=== PATIENT | male | born 2005 | race Caucasian/White ===

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

== ENCOUNTER 2025-08-31 07:44 | Emergency (ER) | payer MEDICAID, SELFPAY ==
--- NOTE | ~2025-08-31 | XR_ITS ---
EXAMINATION: XR CHEST CLINICAL INFORMATION: Cough COMPARISON: May 10, 2023 TECHNIQUE: PA and lateral views FINDINGS: No consolidation, pleural effusion or pneumothorax. No hyperinflation. Cardiomediastinal silhouette size is normal. S-shaped curvature upper thoracic spine. XR/XR chest 2V IMPRESSION: No acute airspace disease. Scoliosis, thoracic spine. Electronically signed by: Oziel Rasmussen MD 08/31/2025 08:09 AM AMANDA
[2025-08-31 07:49] VITALS: BP 132/76; PULSE 90; RESP 18; TEMP 37; O2SAT 97; BMI 33.7
--- NOTE | 2025-08-31 08:11 | ED.URI ---
HPI - URI/Sore Throat General Chief Complaint: Upper Respiratory Symptoms Stated Complaint: Cough Congestion Running Nose Time Seen by Provider: 08/31/25 07:57 Source: patient and old records reviewed Mode of arrival: ambulatory Limitations: no limitations History of Present Illness ED Provider: JEANETH MCLEAN Narrative: 20-year-old male with past medical history of asthma though does not use an inhaler regularly. He notes he has had a cough with white sputum for 3 weeks. His initial illness was runny nose, sore throat, fevers and chills. He states his family was also sick. He denies any recent travel or procedures. States he did try the albuterol inhaler but it did not work. He states he can not remember the last time he had to take prednisone if he has ever had to take prednisone. He does not smoke. He came in as he states the cough just will not get better MD elicited complaint: cough Pertinent past history: asthma Onset (ago): week(s) (Three) Consistency: intermittent Severity: moderate Description of mucous: clear Able to tolerate fluids by mouth: Yes Exacerbating factors: nothing Relieving factors: nothing Context: sick contacts Associated symptoms: other (When he coughs he gets a headache) Treatments prior to arrival: none Related Data Previous Rx's ?Medication ?Instructions ?Recorded albuterol sulfate 90 mcg/actuation 2 inh inhalation Q4-6H PRN 05/10/23 aerosol inhaler shortness of breath or wheezing #8.5 grams benzonatate 200 mg capsule 200 mg PO TID PRN cough #20 caps 05/10/23 azithromycin 250 mg tablet See Rx Instructions PO .COMPLEX #6 08/31/25 tabs fluticasone propionate 50 1 inh inhalation BID #60 ea 08/31/25 mcg/actuation blister powder for inhalation prednisone 20 mg tablet 40 mg (2 x 20 mg) PO DAILY 5 days 08/31/25 #10 tabs Allergies Allergy/AdvReac Type Severity Reaction Status Date / Time No Known Allergies Allergy Verified 08/31/25 07:50 Review of Systems Review of Systems: Constitutional : No Fever, No Chills, No Fatigue ENT/Mouth : No sore throat, No Rhinorrhea Eyes: No Eye Pain, No Swelling, No Redness Cardiovascular : No Chest Pain, No SOB, No Dyspnea on Exertion Respiratory : pos Cough, pos Sputum Gastrointestinal : No Nausea, No Vomiting, No Diarrhea, No abdominal Pain Genitourinary : No Dysuria, No Urinary Frequency, No Hematuria, Musculoskeletal : No joint pain, No Myalgias, No Joint Swelling Skin : No Skin Lesions, No rash Neuro : No Weakness, No Numbness, No Dizziness, positive Headache All other systems reviewed and are negative [facility] Past Medical History Attestation statement: The following information was validated with the patient. Source: old records reviewed Medical History (Updated 08/31/25 @ 08:32 by Ruth Alcaraz DO) Asthma Social History Social History (Updated 08/31/25 @ 08:19 by Ruth Alcaraz DO) Patient Tobacco Use Status: Never used Tobacco Advance Directives: No Advance Directives Information Provided: Yes Physical Exam Vital Signs: Vital Signs: Last Vital Signs Temp 98.6 F 08/31/25 07:49 Pulse 90 08/31/25 07:49 Resp 18 08/31/25 07:49 BP 132/76 08/31/25 07:49 Pulse Ox 97 08/31/25 07:49 O2 Del Method Room Air 08/31/25 07:49 BMI result Body Mass Index 33.7 Appearance: Alert. Oriented X3. No acute distress. Eyes: Pupils equal, round and reactive to light. ENT: Pharynx normal. Neck: Normal inspection. Neck supple. CVS: Normal heart rate and rhythm. Pulses normal. Respiratory: No respiratory distress. Breath sounds normal. Abdomen: Soft and nontender. Skin: Skin warm and dry. Normal skin color. Normal skin turgor. Extremities: No lower extremity edema. No calf ttp Neuro: Oriented X 3. No motor deficit. No sensory deficit. Medical Decision Making Medical Decision Making MDM Narrative: 20-year-old male with past medical history of asthma but is not on any regular asthmatic medications. He comes in after upper respiratory illness now with 3 weeks of persistent cough. Has no fevers at this time, no work of breathing, no hypoxia. He does have mild headaches when he coughs but I do not suspect intracranial hemorrhage or subarachnoid hemorrhage he has no neuro deficits and currently has no headache unless he coughs. At this time I am going to obtain viral panel and chest x-ray for pneumonia. If workup negative I do believe I will start him on a regular albuterol inhaler as well as fluticasone inhaler. Differential Diagnosis Differential Diagnoses: The differential diagnosis associated with the presentation includes Asthma, upper respiratory infection, pneumonia Admission/Observation Consideration of admission/observation: Escalation of care including admission/observation considered He is in no respiratory distress, he has no hypoxia he can be started on outpatient medication Lab Data MDM Lab Attestation statement: I reviewed the patient's lab results. Independent Interpretation I performed an independent interpretation of an: Plain X-Ray (Has some bronchial thickening in the left side) Radiology Impression Discussion of test interpretation with radiology: I have reviewed the radiologist's reading. External Record Review External record reviewed: Outpatient record Prescription Management I considered prescription management with: Antibiotic and Other Discharge Plan Discharge Clinical Impression: Bronchitis Patient Disposition: Home, Self-Care Instructions: Acute Bronchitis (ED) Additional Instructions: At this time there was no pneumonia on your chest x-ray You are negative for COVID, flu, RSV Continue your albuterol inhaler as needed for shortness of breath or wheezing We will start you on oral azithromycin for bronchitis We will also start you on prednisone to decrease any inflammation from infection associated with her asthma Return for any worsening symptoms or concerns After you finish both azithromycin and prednisone I would then start the fluticasone steroid inhaler for 1 month to decrease any return of inflammation make sure you rinse your mouth after On azithromycin, call your provider if you develop new ringing in your ears, new problems hearing, dizziness, palpitations, abdominal pain, nausea, or diarrhea. Prescriptions: New fluticasone propionate 50 mcg/actuation blister with device 1 inh inhalation BID Qty: 60 0RF Rx Instructions: rinse mouth after azithromycin 250 mg tablet See Rx Instructions .ROUTE .COMPLEX Qty: 6 0RF Rx Instructions: For 250 mg dose pack: take 500 mg today (day 1), then 250 mg for 4 days (days 2-5) prednisone 20 mg tablet 40 mg PO DAILY 5 Days Qty: 10 0RF No Action benzonatate 200 mg capsule 200 mg PO TID PRN (Reason: cough) Qty: 20 0RF albuterol sulfate 90 mcg/actuation HFA aerosol inhaler 2 inh inhalation Q4-6H PRN (Reason: shortness of breath or wheezing) Qty: 8.5 0RF Print Language: Luxembourgish
--- OUTSIDE RECORDS SUMMARY | 2025-08-31 08:19 | XMS_ITS | Clinical Summary ---
Author Organization [employer] Address [address] [place] [address] Care Team Providers Care Accounts Payable Clerk Name Role Phone Unavailable Primary Care Provider Unavailabl e Social History Tobacco Use Types Packs/Day Years Used Date Smoking Tobacco: Never Assessed Sex and Gender Information Value Date Recorded Sex Assigned at Not on file Legal Sex Male 9:24 PM EDT Gender Identity Not on file Sexual Orientation Not on file Plan of Treatment Health Maintenance Due Date Last Done Comments Chlamydia and Gonorrhea Screening 2005 Depression Screening 2005 Lipid Panel 2005 SDOH Screening 2005 Disability Screening 2005 Alcohol/Substance Use Screening 2017 Tobacco Screening 2017 Family Planning (PISQ) 02/14/2020 Hepatitis C Screening 2023 COVID-19 Vaccine ( season) 2025 11/06/2021 Influenza Vaccine (#1) 2025 , 11/10/2017, 11/17/2012, Additional history exists DTaP/Tdap/Td Vaccines (6 - Td or Tdap) 11/10/2027 11/10/2017, 08/06/2009, 12/24/2006, Additional history exists Zoster Vaccines (1 of 2) 2055 RSV Patients and Patients Aged 60 years or older (1 - 1-dose 75+ series) 02/14/2080 Hepatitis B Vaccines Completed 2005, 2005, 2005 HIB Vaccines Completed 12/24/2006, 11/11, 2005 IPV Vaccines Completed 08/06/2009, 11/12, 2005, Additional history exists Pneumococcal Vaccine: Pediatrics (0 to 5 Years) and At-Risk Patients (6 to 49) Years Aged Out 08/06/2009, 12/24/2006 No longer eligibl e based on patient's age to complete this topic Hepatitis A Vaccines Completed 06/01/2012, 11/06/19 10 HPV Vaccines Completed 12/09/2020, 11/10/2017 Meningococcal Vaccine Completed 06/09/2022, 018 HIV Screening Completed 06/11/2022 Meningococcal B Vaccine Completed 02/15/2023, 06/09 RSV under 20 months Aged Out No longe r eligible based on patient's age to complete this topic Rotavirus Vaccines Aged Out No longer eligible based on patient's age to complete this topic
[2025-08-31 09:21] LABS: Resp Syncy Virus RNA Qual PCR NEGATIVE (Negative); SARS COV2 PCR INHOUSE NEGATIVE (Negative)
[2025-08-31 09:54] VITALS: BP 132/76; PULSE 90; RESP 18; TEMP 37; O2SAT 97
== END 2025-08-31 09:54 | disposition home or self-care (01) ==
PROVIDERS: Emergency Provider Emergency Medicine
DX: J40 Bronchitis, not specified as acute or chronic (principal); R05.9 Cough, unspecified; R51.9 Headache, unspecified; Z03.818 Encounter for observation for suspected exposure to other biological agents ruled out
CPT/HCPCS: 71046; 87637; 99282; 99283

== ENCOUNTER → 2025-08-31 07:46 | Outpatient (BNV) | payer MEDICAID, SELFPAY | PROVIDERS: Emergency Provider Emergency Medicine; Visit Provider Radiology Diagnostic Radiology | DX: R05.9 Cough, unspecified (principal); M41.84 Other forms of scoliosis, thoracic region | CPT/HCPCS: 71046 ==

== ENCOUNTER 2025-09-25 08:42 | Emergency (ER) | payer MEDICAID, SELFPAY ==
--- NOTE | ~2025-09-25 | XR_ITS ---
EXAMINATION: XR CHEST CLINICAL INFORMATION: COUGH COMPARISON: August 31, 2025 TECHNIQUE: PA and lateral views FINDINGS: No hyperinflation. No consolidation, pleural effusion or pneumothorax. Cardiomediastinal silhouette size is normal. Mild S-shaped curvature of the thoracic spine. No acute cortical disruption or gross malalignment. No lytic or blastic lesions. XR/XR chest 2V IMPRESSION: No acute airspace disease. Mild scoliosis, mid thoracic spine. Electronically signed by: Oziel Rasmussen MD 09/25/2025 09:01 AM AMANDA HAMILTON
[2025-09-25 08:43] VITALS: BP 131/92; PULSE 83; RESP 18; TEMP 36.6; O2SAT 96; BMI 33.4
[2025-09-25 09:50] LABS: Resp Syncy Virus RNA Qual PCR NEGATIVE (Negative); SARS COV2 PCR INHOUSE NEGATIVE (Negative)
--- NOTE | 2025-09-25 09:59 | ED_ITS ---
HPI - General Adult General Chief complaint: Upper Respiratory Symptoms Stated complaint: cough Time Seen by Provider: 09/25/25 09:11 Source: patient and old records reviewed Mode of arrival: ambulatory Limitations: no limitations History of Present Illness ED Provider: JEANETH MCLEAN narrative: 20-year-old male with past medical history of bronchospasm who has been coughing for 1 month. He states he coughs throughout the day. He has no mucus or runny nose. He states he does not get woken up by the cough. He has no fevers or sore throat. He did take the medications from his discharge including inhalers but nothing helped. He has not been able to see his primary care. He does have a visit October 23. Related Data Previous Rx's ?Medication ?Instructions ?Recorded albuterol sulfate 90 mcg/actuation 2 inh inhalation Q4 -6H PRN 05/10/23 aerosol inhaler shortness of breath or wheez ing #8.5 grams benzonatate 200 mg capsule 200 mg PO TID PRN cough #20 caps 05/10/23 azithromycin 250 mg tablet See Rx Instructions PO .COM PLEX #6 08/31/25 tabs fluticasone propionate 50 1 inh inhalation BID #60 ea 08/31/25 mcg/actuation blister powder for inhalation prednisone 20 mg tablet 40 mg (2 x 20 mg) PO DAILY 5 days 08/31/25 #10 tabs Allergies Allergy/AdvReac Type Severity Reaction Status Date / Time No Known Allergies Allergy Verified 09/25/25 08:45 Review of Systems Review of Systems: Yes all other systems are reviewed and are negative PMFSH Past Medical History Medical History (Updated 09/26/25 @ 00:00 by Theresa Maldonado) Asthma Social History Social History (Updated 08/31/25 @ 08:19 by Ruth Alcaraz DO) Patient Tobacco Use Status: Never used Tobacco Advance Directives: No Advance Directives Information Provided: Yes Physical Exam ED Vital Signs: Vital Signs - 24 hr 09/25/25 10:38 Temperature 98 F Pulse Rate 83 Respiratory Rate 18 Blood Pressure 131/92 H Pulse Oximetry 96 Oxygen Delivery Method Room Air BMI result Body Mass Index 33.4 Appearance: Alert. Oriented X3. No acute distress. Eyes: Pupils equal, round and reactive to light. ENT: Pharynx shows enlarged uvula but it is not swollen is not red. It is touching the back of his tongue. He has not gagging on it. There is no signs of infection of the uvula. Neck: Normal inspection. Neck supple. CVS: Normal heart rate and rhythm. Pulses normal. Respiratory: No respiratory distress. Breath sounds normal. Abdomen: Soft and nontender. Skin: Skin warm and dry. Normal skin color. Extremities: No lower extremity edema. Neuro: Oriented X 3. No motor deficit. No sensory deficit. Medical Decision Making Medical Decision Making [facility] Narrative: 20-year-old male with no significant past medical history he reports chronic cough. He is not on any medications that would cause that he is aware of. He has no fevers, no sputum no weight loss no hemoptysis. He had no preceding travel prior to this. He has used inhalers without any relief. On exam his uvula slightly enlarged in his touching the back of the posterior tongue asked me he felt like he was choking ever he said no he has no acid reflux symptoms. At this time given the chronic cough and going to refer him to ENT for further evaluation. There is no red flags on exam or history. Differential Diagnosis Differential Diagnoses: The differential diagnosis associated with the presentation includes Chronic cough Admission/Observation Consideration of admission/observation: Escalation of care including admission/observation considered Not toxic he his stable for DC Lab Data [facility] Lab Attestation statement: I reviewed the patient's lab results. Labs: Lab Results 09/25/25 Range/Units 09:06 Influenza Type A (PCR) NEGATIVE (Negative) Influenza Type B (PCR) NEGATIVE (Negative) RSV RNA Qual (PCR) NEGATIVE (Negative) SARS-CoV-2 RNA (RT-PCR) NEGATIVE (Negative) Independent Interpretation I performed an independent interpretation of an: Plain X-Ray (Normal) Radiology Impression Discussion of test interpretation with radiology: I have reviewed the radiologist's reading. External Record Review External record reviewed: Outpatient record, Prior outpatient labs and Prior outpatient radiology Prescription Management I considered prescription management with: Other Discharge Plan Discharge Clinical Impression: Chronic cough Patient Disposition: Home, Self-Care Additional Instructions: Your chest x-ray is normal At this time your lungs are clear to auscultation Your chest x-ray is normal At this time we did discuss your enlarged uvula which could be contributing to your chronic cough I would follow up with an ENT provider [phone] Prescriptions: No Action benzonatate 200 mg capsule 200 mg PO TID PRN (Reason: cough) Qty: 20 0RF albuterol sulfate 90 mcg/actuation HFA aerosol inhaler 2 inh inhalation Q4-6H PRN (Reason: shortness of breath or wheezing) Qty: 8.5 0RF fluticasone propionate 50 mcg/actuation blister with device 1 inh inhalation BID Qty: 60 0RF Rx Instructions: rinse mouth after azithromycin 250 mg tablet See Rx Instructions .ROUTE .COMPLEX Qty: 6 0RF Rx Instructions: For 250 mg dose pack: take 500 mg today (day 1), then 250 mg for 4 days (days 2-5) prednisone 20 mg tablet 40 mg PO DAILY 5 Days Qty: 10 0RF Interventions: ED Discharge Assessment Last Done: 09/25/25 10:38 Discharge Date/Time: 09/25/25 10:39 Print Language: Thai
[2025-09-25 10:38] VITALS: BP 131/92; PULSE 83; RESP 18; TEMP 36.6; O2SAT 96
--- OUTSIDE RECORDS SUMMARY | 2025-09-25 11:27 | XMS_ITS | Clinical Summary ---
Author Organization [employer] Address [address] [place] [address] Care Team Providers Care Pharmaceutical Scientist Name Role Phone Unavailable Primary Care Provider Unavailabl e Social History Tobacco Use Types Packs/Day Years Used Date Smoking Tobacco: Never Assessed Sex and Gender Information Value Date Recorded Sex Assigned at Not on file Legal Sex Male 9:24 PM EDT Gender Identity Not on file Sexual Orientation Not on file Plan of Treatment Health Maintenance Due Date Last Done Comments Depression Screening 2005 Lipid Panel 2005 SDOH Screening 2005 Disability Screening 2005 Alcohol/Substance Use Screening 2017 Tobacco Screening 2017 Family Planning (PISQ) 02/14/2020 Hepatitis C Screening 2023 Chlamydia and Gonorrhea Screening 06/09/2023 06/09/2022, 12/09/2020 COVID-19 Vaccine ( season) 2025 11/06/2021 Influenza [...]
== END 2025-09-25 10:39 | disposition home or self-care (01) ==
PROVIDERS: Emergency Provider Emergency Medicine
DX: R05.3 Chronic cough (principal); Z03.818 Encounter for observation for suspected exposure to other biological agents ruled out
CPT/HCPCS: 71046; 87637; 99282; 99283

== ENCOUNTER → 2025-09-25 08:48 | Outpatient (BNV) | payer MEDICAID, SELFPAY | PROVIDERS: Emergency Provider Emergency Medicine; Visit Provider Radiology Diagnostic Radiology | DX: R05.9 Cough, unspecified (principal); M41.84 Other forms of scoliosis, thoracic region | CPT/HCPCS: 71046 ==